=== PATIENT | male | born 1945 | race Caucasian/White ===

== ENCOUNTER 2017-03-13 07:55 | Day surgery (SDC) | payer BC ==
[2017-03-01 19:00] VITALS: BMI 34.4
[2017-03-13] MEDS ORDERED: PROPOFOL 20 ML ONE ×2 (08:10)
[2017-03-13] MEDS ORDERED: LIDOCAINE HCL/PF 2% SDV 5ML VIAL ONE (08:11)
[2017-03-13 08:20] VITALS: TEMP 98
[2017-03-13 10:18] VITALS: BP 103/64; PULSE 65
--- NOTE | 2017-03-14 12:03 | PATH ---
Surgical Pathology Report Patient Name: NADEGE LOPES [facility]. Rec. #: [id number] /Age/Gender: 1945 (Age: 72) / M Account: [id number] Location: [facility]-ENDOSCOPY Taken: 03/13/2017 Received: 03/13/2017 Reported: 03/14/2017 Physicians: Vince Bolaños M.D. Specimen(s) Received A: BX RIGHT COLON B: BX HEPATIC FLEXURE C: SPLENIC FLEXURE BIOPSY Clinical History History of polyps Polyps Final Diagnosis A. COLON, RIGHT, POLYP, POLYPECTOMY: TUBULAR ADENOMA. B. COLON, HEPATIC FLEXURE, POLYP, POLYPECTOMY: TUBULAR ADENOMA. C. COLON, SPLENIC FLEXURE, POLYP, POLYPECTOMY: TUBULAR ADENOMA. Electronically Signed Marlo Carey M.D. Gross Description A. Received in formalin, labeled "right colon" is a ennis, irregular portion of soft tissue measuring 0.7 cm in greatest dimension. The specimen is submitted in toto in one cassette. B. Received in formalin, labeled "hepatic flexure" is a ennis, irregular portion of soft tissue measuring 0.1 cm in greatest dimension. The specimen is submitted in toto in one cassette. C. Received in formalin, labeled "splenic flexure" is a ennis, irregular portion of soft tissue measuring 0.4 cm in greatest dimension. The specimen is submitted in toto in one cassette. 03/13/201703/13/2017
== END 2017-03-13 10:10 | disposition home or self-care (01) ==
LOC: FASU-ENDO 07:55
PROVIDERS: ATTEND Internal Medicine Gastroenterology
PROC: 0DBK8ZX Excision of Ascending Colon, Via Natural or Artificial Opening Endoscopic, Diagnostic (ICD-10-PCS; principal; 2017-03-13 09:00)
PROC: 0DBL8ZX Excision of Transverse Colon, Via Natural or Artificial Opening Endoscopic, Diagnostic (ICD-10-PCS; 2017-03-13 09:00)
DX: Z86.010 Personal history of colon polyps (principal); D12.2 Benign neoplasm of ascending colon; D12.3 Benign neoplasm of transverse colon
CPT/HCPCS: 88305-TC

== ENCOUNTER 2022-07-22 14:05 | Emergency (ER) | payer OTHER, MEDICARE ==
[2022-07-22 14:19] VITALS: BP 156/72; PULSE 79; RESP 18; TEMP 98.2; BMI 28.0
== END 2022-07-22 15:30 | disposition home or self-care (01) ==
LOC: FER 14:05 → SUPCPDRO 14:05 → FER 15:30
DX: S90.32XA Contusion of left foot, initial encounter (principal); W22.8XXA Striking against or struck by other objects, initial encounter
CPT/HCPCS: 73630-TC-LT; 99283-25